=== PATIENT | female | born 1965 | race Caucasian/White ===

== ENCOUNTER 2020-01-29 15:09 | Emergency (ER) | payer OTHER ==
[2020-01-29] MEDS ORDERED: Cephalexin 500 MG Cap PO ONE ×2 (15:45→15:50)
--- NOTE | 2020-01-29 15:57 | EDM.PDOC ---
ED HPI GENERAL MEDICAL PROBLEM - General Chief Complaint: General Stated Complaint: INCISION WITH DRAINAGE Time Seen by Provider: 01/29/20 15:29 Source of Information: Reports: Patient, RN Notes Reviewed History Limitations: Reports: No Limitations - History of Present Illness INITIAL COMMENTS - FREE TEXT/NARRATIVE: Patient is a 55-year-old female who presents to the ED for evaluation of her draining abdomen wound. Patient had a four-vessel CABG done by Dr. Hooker at [facility] in [place] on January 11. The patient noted that yesterday 1 of the abdomen incision sites seem to have popped open, and she is noticing some drainage that is malodorous. There is some redness around the incision, and it is somewhat tender. She is in no obvious abdominal pain however. She does have a sulfa allergy. She was trying to clean this in the shower, but decided she better come get this looked at as she did not want it progressing further. Patient denies any other sick-like symptoms, fever/chills, cough/shortness of breath, nausea/vomiting/diarrhea. - Related Data Allergies Allergy/AdvReac Type Severity Reaction Status Date / Time Sulfa (Sulfonamide Allergy Severe Hives Verified 01/29/20 15:30 Antibiotics) iodine Allergy Hives Verified 01/29/20 15:30 Home Meds: Home Meds Aspirin [Halfprin] 81 mg PO DAILY 01/29/20 [History] DULoxetine [Cymbalta] 60 mg PO DAILY 01/29/20 [History] Metoprolol Succinate 12.5 mg PO BID 01/29/20 [History] Ozempic 1 injection INJECT FR 01/29/20 [History] atorvaSTATin [Lipitor] 80 mg PO DAILY 01/29/20 [History] cephALEXin [Cephalexin] 500 mg PO QID 7 Days #26 capsule 01/29/20 [Rx] Past Medical History Cardiovascular History: Reports: Bypass Other Cardiovascular History: jan 12 2020 4 vessel bypass Genitourinary History: Reports: UTI, Recurrent Musculoskeletal History: Reports: Arthritis, Fibromyalgia, Gout Endocrine/Metabolic History: Reports: Diabetes, Type II - Infectious Disease History Infectious Disease History: Reports: Chicken Pox - Past Surgical History Female Surgical History: Reports: Breast Biopsy, Hysterectomy Other Female Surgeries/Procedures: benign Social & Family History - Tobacco Use Tobacco Use Status *Q: Former Tobacco User Used Tobacco, but Quit: Yes Month/Year Tobacco Last Used: Jan 10 - Caffeine Use Caffeine Use: Reports: None - Recreational Drug Use Recreational Drug Use: Yes Recreational Drug Type: Reports: Marijuana/Hashish Recreational Drug Use Frequency: Daily ED ROS GENERAL - Review of Systems Review Of Systems: Comprehensive ROS is negative, except as noted in HPI. ED EXAM, GENERAL - Physical Exam Exam: See Below Exam Limited By: No Limitations General Appearance: Alert, WD/WN, No Apparent Distress Respiratory/Chest: No Respiratory Distress, Lungs Clear, Normal Breath Sounds, No Accessory Muscle Use, Chest Non-Tender Cardiovascular: Normal Peripheral Pulses, Regular Rate, Rhythm, No Murmur Peripheral Pulses: 2+: Radial (L) GI/Abdominal: Normal Bowel Sounds, Soft, No Distention, No Mass, Tender (minimal tenderness around the incision site in question on Left upper abdomen. The site is open, does appear to be draining a foul smelling purulent liquid. ) Extremities: Normal Inspection, Normal Capillary Refill Neurological: Alert, Oriented, Normal Cognition, No Motor/Sensory Deficits Psychiatric: Normal Affect, Normal Mood Skin Exam: Warm, Dry, Normal Color, No Rash, Wound/Incision (See abdomen assessment for further detail) Course - Vital Signs Last Recorded V/S: Last Vital Signs Temp 97.5 F 01/29/20 15:24 Pulse 86 01/29/20 15:24 Resp 19 01/29/20 15:24 BP 124/80 01/29/20 15:24 Pulse Ox 98 01/29/20 15:24 - Orders/Labs/Meds Meds: Medications Discontinued Medications Generic Name Dose Route Start Last Admin Trade Name Karthikeyanq PRN Reason Stop Dose Admin Cephalexin 500 mg 01/29/20 15:45 Keflex PO 01/29/20 15:46 ONETIME ONE - Re-Assessments/Exams Free Text/Narrative Re-Assessment/Exam: 01/29/20 15:54 Patient presents to the ED for a draining abdomen wound. I did call cardiothoracic surgery in [place], to make sure there were no special considerations regarding her postsurgical status. I got a hold of Dr. Metcalf, and he states normal skin moni antibiotics would be appropriate at this time. Should be placed on Keflex for management, 500 mg 4 times daily. Departure - Departure Time of Disposition: 15:54 Disposition: Home, Self-Care 01 Condition: Good Clinical Impression: Draining postoperative wound Qualifiers: Encounter type: initial encounter Qualified Code(s): T81.89XA - Other complications of procedures, not elsewhere classified, initial encounter - Discharge Information *PRESCRIPTION DRUG MONITORING PROGRAM REVIEWED*: No *COPY OF PRESCRIPTION DRUG MONITORING REPORT IN PATIENT SOLA: No Prescriptions: cephALEXin [Cephalexin] 500 mg PO QID 7 Days #26 capsule Instructions: How to Minimize Scarring After Surgery Referrals: Mariah Gomez, [employer] [Primary Care Provider] - Additional Instructions: You were evaluated in the ER today for your draining abdomen wound. Cardiothoracic surgery was consulted due to your recent CABG by Dr. Hooker. I was in touch with his coworker, Dr. Metcalf, and you will be started on cephalexin 1 tablet 4 times a day for the next 7 days. You were given your first dose in the ER, and a second to take tonight. You will need to go to the pharmacy in [facility] grocery store tomorrow to order picker the rest of the medication to take as prescribed. You may use Tylenol or ibuprofen every 6 hours as needed for further pain relief. Please keep the area clean with warm soapy water, you may bandage as appropriate with gauze and tape. You should follow-up with Dr. Hooker, sometime next week or the week after to make sure that everything is getting better as expected. If you do not notice improvement in the wound drainage by Thursday, I highly recommend that you get seen by another medical professional for a possible change in antibiotics. Normally antibiotics can take up to 48 hours to start providing full effect. Please return to the ER at any time if symptoms change or worsen. Sepsis Event Note (ED) - Evaluation Sepsis Screening Result: No Definite Risk - Focused Exam Vital Signs: Vital Signs Temp Pulse Resp BP Pulse Ox 01/29/20 15:24 97.5 F 86 19 124/80 98
== END 2020-01-29 16:15 | disposition home or self-care (01) ==
LOC: JD.ED 15:09
DX: L76.82 Other postprocedural complications of skin and subcutaneous tissue (principal); M10.9 Gout, unspecified; E11.9 Type 2 diabetes mellitus without complications; Z87.891 Personal history of nicotine dependence; Z88.2 Allergy status to sulfonamides; Z91.048 Other nonmedicinal substance allergy status; Z79.82 Long term (current) use of aspirin; Z79.899 Other long term (current) drug therapy
CPT/HCPCS: 99282; A9270; 99283

== ENCOUNTER 2020-11-29 06:08 | Day surgery (SDC) | payer OTHER ==
[~2020-11-29 06:08] MED LIST: Acetaminophen 325 MG Tab PO SCH; Lactated Ringers 1,000 ML IV SCH; Lidocaine 1% 4 ML ONE; Lidocaine 1%/Sod Bicarbonate in NS 8.4% 1 ML Syringe IDERM PRN; Midazolam 1 MG/ML 2 ML SDV ONE; Propofol 200 MG/20 ML SDV ONE; Sodium Chloride 0.9% 10 ML Syringe FLUSH PRN; ceFAZolin 1 GM Vial ONE; fentaNYL 100 MCG/2 ML SDV ONE
[2020-11-29] MEDS ORDERED: Lactated Ringers 1,000 ML ONE (06:12)
[2020-11-29] MEDS ORDERED: Pregabalin 25 MG Cap PO SCH (06:15)
[2020-11-29] MEDS ORDERED: oxyCODONE ER 10 MG TAB.ER PO SCH (06:15)
--- NOTE | 2020-11-29 06:23 | PCM.PREANE ---
Preanesthetic Assessment - Anesthesia/Transfusion/Family Hx Anesthesia History: Prior Anesthesia Without Reaction Family History of Anesthesia Reaction: No Transfusion History: No Prior Transfusion(s) Intubation History: Unknown - Review of Systems General: No Symptoms Pulmonary: No Symptoms Cardiovascular: No Symptoms Gastrointestinal: No Symptoms Neurological: No Symptoms Other: Reports: Diabetes - Physical Assessment NPO Status Date: 11/28/20 NPO Status Time: 21:30 ASA Class: 3 Mental Status: Alert & Oriented x3 Airway Class: Mallampati = 3 Dentition: Reports: Normal Dentition Thyro-Mental Finger Breadths: 3 Mouth Opening Finger Breadths: 3 ROM/Head Extension: Full Lungs: Clear to Auscultation, Normal Respiratory Effort Cardiovascular: Regular Rate, Regular Rhythm, Murmurs - Allergies Allergies/Adverse Reactions: Allergies Allergy/AdvReac Type Severity Reaction Status Date / Time Sulfa (Sulfonamide Allergy Intermediate Hives Verified 11/28/20 16:19 Antibiotics) iodine Allergy Hives Verified 11/28/20 16:19 simvastatin [From Zocor] Allergy Cannot Verified 11/28/20 16:19 Remember - Anesthesia Plan Beta Derrell: Metoprolol Med Last Dose Date: 11/29/20 Med Last Dose Time: 05:30 - Acknowledgements Anesthesia Type Planned: Spinal, Regional Block Pt an Appropriate Candidate for the Planned Anesthesia: Yes Alternatives and Risks of Anesthesia Discussed w Pt/Guardian: Yes Pt/Guardian Understands and Agrees with Anesthesia Plan: Yes PreAnesthesia Questionnaire HEENT History: Reports: Impaired Vision, Other (See Below) Other HEENT History: wears glasses Cardiovascular History: Reports: Bypass, Heart Failure, Heart Murmur, Hypertension Other Cardiovascular History: abnormal EKG, LVH Respiratory History: Reports: Sleep Apnea (CPAP) Gastrointestinal History: Reports: None Genitourinary History: Reports: UTI, Recurrent Musculoskeletal History: Reports: Arthritis, Fibromyalgia, Gout Neurological History: Reports: None Psychiatric History: Reports: None Endocrine/Metabolic History: Reports: Diabetes, Type II Hematologic History: Reports: None Immunologic History: Reports: None Oncologic (Cancer) History: Reports: None Dermatologic History: Reports: Urticaria - Infectious Disease History Infectious Disease History: Reports: Chicken Pox - Past Surgical History Head Surgeries/Procedures: Reports: None HEENT Surgical History: Reports: Adenoidectomy, Cataract Surgery, Tonsillectomy Cardiovascular Surgical History: Reports: Coronary Artery Bypass Respiratory Surgical History: Reports: None GI Surgical History: Reports: None Female Surgical History: Reports: Breast Biopsy, Hysterectomy Other Female Surgeries/Procedures: benign Endocrine Surgical History: Reports: None Neurological Surgical History: Reports: None Musculoskeletal Surgical History: Reports: Hip Replacement, Other (See Below) ((L) ankle) Oncologic Surgical History: Reports: None Dermatological Surgical History: Reports: None - SUBSTANCE USE Tobacco Use Status *Q: Former Tobacco User Recreational Drug Use History: No - HOME MEDS Home Medications: Home Meds atorvaSTATin [Lipitor] 80 mg PO DAILY 01/29/20 [History] Clobetasol [Clobetasol 0.05%] 1 dose TOP ASDIRECTED 11/28/20 [History] DULoxetine HCl [Cymbalta] 60 mg PO DAILY 11/28/20 [History] Losartan [Cozaar] 50 mg PO DAILY 11/28/20 [History] Metoprolol Tartrate 50 mg PO DAILY 11/28/20 [History] Risankizumab-Rzaa [Skyrizi] 1 dose IM Q90D 11/28/20 [History] Semaglutide [Ozempic] 0.75 mg SQ TU 11/28/20 [History] Apixaban [Eliquis] 2.5 mg PO BID #60 tablet 11/29/20 [Rx] Aspirin 81 mg PO DAILY #1 tab.chew 11/29/20 [Rx] oxyCODONE 5 - 10 mg PO Q4H PRN #40 tab 11/29/20 [Rx] - CURRENT (IN HOUSE) MEDS Current Meds: Current Medications Acetaminophen (Acetaminophen 325 Mg Tab) 975 mg PO ONETIME DIANA Stop: 11/29/20 16:00 Morphine Sulfate 8 mg/Epinephrine HCl 0.3 mg/Cefuroxime Sodium 750 mg/Ketorolac Tromethamine 30 mg/Sodium Chloride 7.9 ml 0 mg .XX ASDIRECTED PRN PRN Reason: Pain Stop: 11/29/20 16:00 Lactated Ringer's (Ringers, Lactated) 1,000 mls @ 125 mls/hr IV ASDIRECTED DIANA Stop: 11/29/20 23:00 Lidocaine/Sodium Bicarbonate (Lidocaine 1%/Sod Bicarbonate In Ns 8.4% 1 Ml Syringe) 0.25 ml IDERM ONETIME PRN PRN Reason: Prior to IV Start Stop: 11/29/20 18:00 Oxycodone HCl (Oxycodone Er 10 Mg Tab.Er) 10 mg PO ONETIME DIANA Stop: 11/29/20 16:00 Pregabalin (Pregabalin 25 Mg Cap) 50 mg PO ONETIME DIANA Stop: 11/29/20 16:00 Sodium Chloride (Sodium Chloride 0.9% 10 Ml Syringe) 10 ml FLUSH ASDIRECTED PRN PRN Reason: Keep Vein Open Stop: 11/29/20 18:00 Discontinued Medications Cefazolin Sodium (Cefazolin 1 Gm Vial) Confirm Administered Dose 2 gm .ROUTE .STK-MED ONE Stop: 11/29/20 06:04 Fentanyl (Fentanyl 100 Mcg/2 Ml Sdv) Confirm Administered Dose 100 mcg .ROUTE .STK-MED ONE Stop: 11/29/20 06:04 Lidocaine HCl (Xylocaine-Mpf 1%) Confirm Administered Dose 4 mls @ as directed .ROUTE .STK-MED ONE Stop: 11/29/20 06:03 Lactated Ringer's (Ringers, Lactated) Confirm Administered Dose 1,000 mls @ as directed .ROUTE .STK-MED ONE Stop: 11/29/20 06:13 Midazolam HCl (Midazolam 1 Mg/Ml 2 Ml Sdv) Confirm Administered Dose 2 mg .ROUTE .STK-MED ONE Stop: 11/29/20 06:04 Propofol (Propofol 200 Mg/20 Ml Sdv) Confirm Administered Dose 200 mg .ROUTE .STK-MED ONE Stop: 11/29/20 06:03
[2020-11-29] MEDS ORDERED: ePHEDrine 50 MG/ML SDV ONE (07:33)
[2020-11-29] MEDS ORDERED: Propofol 200 MG/20 ML SDV ONE ×2 (07:51→08:32)
[2020-11-29] MEDS ORDERED: diphenhydrAMINE 50 MG/ML SDV IVPUSH PRN (07:59)
[2020-11-29] MEDS ORDERED: fentaNYL 100 MCG/2 ML SDV IVPUSH PRN (07:59)
[2020-11-29] MEDS ORDERED: Ondansetron 4 MG/2 ML SDV IVPUSH PRN (07:59)
[2020-11-29] MEDS: Morphine 8 MG, EPINEPHrine 0.3 MG, Cefuroxime 750 MG, Ketorolac 30 MG, Sodium Chloride ... PRN ×10 (08:02→08:28)
[2020-11-29] MEDS: Vancomycin 1 GM SDV ONE ×2 (08:02→08:30)
[2020-11-29] MEDS: Bupivacaine 0.25% 10 ML SDV ONE ×2 (08:03→08:51)
[2020-11-29] MEDS: Triamcinolone Acetonide 40 MG/ML 1 ML SDV ONE ×2 (08:03→08:51)
[2020-11-29] MEDS ORDERED: EPINEPHrine 1 MG/ML SDV ONE (08:22)
[2020-11-29] MEDS ORDERED: Ropivacaine 0.5% 5 MG/ML 30 ML SDV ONE (08:22)
[2020-11-29] MEDS ORDERED: Ondansetron 4 MG/2 ML SDV ONE (08:28)
[2020-11-29] MEDS ORDERED: Ketorolac 15 MG/ML SDV ONE (08:30)
--- NOTE | 2020-11-29 09:19 | PCM.POSTAN ---
POST ANESTHESIA ASSESSMENT - MENTAL STATUS Mental Status: Alert, Oriented - VITAL SIGNS Vital Signs: Last Vital Signs Temp 36.8 C 11/29/20 09:06 Pulse 71 11/29/20 08:58 Resp 12 11/29/20 09:06 BP 115/66 11/29/20 09:06 Pulse Ox 94 L 11/29/20 09:06 - RESPIRATORY Respiratory Status: Respiratory Rate WNL, Airway Patent, O2 Saturation Stable - CARDIOVASCULAR CV Status: Pulse Rate WNL, Blood Pressure Stable - GASTROINTESTINAL GI Status: No Symptoms - PAIN Pain Score: 0 - POST OP HYDRATION Hydration Status: Adequate & Stable
--- NOTE | 2020-11-29 09:24 | PCM.PRNOTE ---
- Free Text/Narrative Note: Left selective femoral nerve block at the adductor canal for post-procedure pain control under US guidance requested by Dr. Jefferson. Time Out: 906 Start: 907 End: 915 Chart reviewed. Consent signed. Questions answered. Appropriate monitors applied. Time out performed. Left mid-shaft femur identified with ultrasound, scanning medially of femur, the femoral artery in the adductor canal visualized, and the femoral nerve located laterally to the artery. The skin was prepped lateral to the ultrasound probe with chlorahexadine times two. The 21ga 4 insulated block needle was inserted under direct ultrasound guidance into the adductor canal. 20mL of 0.5% ropivacaine with 1:200,000 epinephrine was injected circumferentially around the nerve with intermittent negative aspiration noted. Patient tolerated the procedure well. Sterile technique noted along with sterile gloves, mask, and sterile probe cover. See picture on progress note and vital signs on nurses notes. Block completed in PACU. Lia Guerra CRNA
[2020-11-29] MEDS ORDERED: oxyCODONE 5 MG Tab PO PRN (09:37)
--- NOTE | 2020-11-29 09:44 | PCM48HPAN ---
Post Anesthesia Note - EVALUATION WITHIN 48HRS OF ANESTHETIC Vital Signs in Normal Range: Yes Patient Participated in Evaluation: Yes Respiratory Function Stable: Yes Airway Patent: Yes Cardiovascular Function Stable: Yes Hydration Status Stable: Yes Pain Control Satisfactory: Yes Nausea and Vomiting Control Satisfactory: Yes Mental Status Recovered: Yes Vital Signs: Last Vital Signs Temp 36.9 C 11/29/20 09:30 Pulse 60 11/29/20 09:30 Resp 14 11/29/20 09:30 BP 123/67 11/29/20 09:30 Pulse Ox 99 11/29/20 09:40
--- NOTE | 2020-11-29 10:38 | CR ---
Left knee: AP and crosstable lateral views of the left knee were obtained. Comparison: Prior left knee CT study of 11/13/20. Left knee prosthesis is seen. Components are aligned. Underlying bony structure shows no other acute abnormality. Patellar prosthesis is seen. Soft tissue air is noted. Incidental surgical clips are seen within the medial soft tissues. Impression: 1. Satisfactory radiographic appearance of recently placed left knee prostheses. Diagnostic code #2
--- NOTE | 2020-12-12 17:20 | PCM.OPNOTE ---
- General Post-Op/Procedure Note Date of Surgery/Procedure: 11/29/20 Operative Procedure(s): left total knee arthroplasty with kait[employer] and right knee steroid injection Pre Op Diagnosis: bilateral knee osteoarthrosis Post-Op Diagnosis: Same Anesthesia Technique: Local, MAC, Spinal Primary Surgeon: Nazario Jefferson Anesthesia Provider: Lia Guerra Supervisor Gelatin Plant: valerie Supervisor Gelatin Plant: Annette Brown EBL in mLs: 150 Complications: None Condition: Good Free Text/Narrative:: 2/2 9mm 29x9
--- NOTE | 2020-12-12 18:20 | OR ---
DATE OF OPERATION: 11/29/2020 SURGEON: Nazario Jefferson MD OPERATION PERFORMED: Left total knee arthroplasty with [employer] and right knee steroid injection. PREOPERATIVE DIAGNOSIS: Bilateral knee osteoarthrosis. POSTOPERATIVE DIAGNOSIS: Bilateral knee osteoarthrosis. ANESTHESIA: Local MAC with spinal. ANESTHESIA PROVIDER: Lia Guerra CRNA. DIRECTOR TRUST: Paige Hussein PA-C; and Annette Brown LPN. ESTIMATED BLOOD LOSS: 150 mL. COMPLICATIONS: None. CONDITION: Stable. IMPLANT: 1. Moni size 2 press-fit CR femur. 2. Cisco size 2 press-fit tibial baseplate. 3. Moni size 2 9 mm CS polyethylene insert. 4. Moni size 29 x 9 mm cemented asymmetric patella. DESCRIPTION OF PROCEDURE: The patient was identified in the preoperative holding area. Proper site was marked and identified by the surgeon. The patient was taken back to the operating theater where after adequate anesthesia, the patient had a nonsterile tourniquet applied to the left lower extremity. Left lower extremity was then sterilely prepped and draped in the usual sterile fashion. OR time-out was performed. Patient received 2 g IV Ancef. Leg ndiaye was applied to the left lower extremity. Left lower extremity was exsanguinated. Tourniquet was insufflated to 250 mmHg. Anterior incision was then made. Medial parapatellar arthrotomy was created. Deep fibers of the MCL were raised and anterior fat pad was resected. Attention was turned to the patella. Patella measured 21, resected to a 13 for 29 x 9 mm patella. Drill holes were then drilled. Two 4.0 Schanz pins were then placed intra-incisionally in the femur for the [employer] array. Two more were placed in the tibia 3 fingerbreadths below the tibial tubercle. At this time, checkpoints were placed in the femur and the tibia. Hip center rotation was obtained. Medial and lateral malleoli were marked. Femoral and tibial checkpoints were marked. 40 points were then obtained using the blue probe on both the femur and the tibia for the Moni Tejinder robotic plan. The patient's knee was brought into full extension. Varus and valgus stresses were applied as well as a 90-degree flexion. Moni Tejinder robotic plan for 19 mm gaps was then undertaken. Straight saw blade was then brought in and the tibial cut, anterior femoral cut, anterior chamfer cut, and posterior femoral cut were completed. Saw blade was then switched. Distal femoral cut as well as posterior chamfer cuts were then completed. The bony fragments were removed, medial and lateral meniscus were resected, any posterior osteophytes were removed. Trial implants with a size 2 tibia and size 2 femur were then placed and a 9 mm trial spacer was placed. The patient had full knee flexion and extension and no varus-valgus instability. Patella tracking centrally. At this time, drill holes were drilled in the femur as well as the tibia was stamped and drilled in proper rotation. All trial implants were removed. The size 2 tibia was impacted in place. Size 2 femur was impacted in place. A size 9 mm CS polyethylene insert was impacted placed. The patient's knee was brought to full extension and 29 x 9 mm press-fit patella was pressed into place. Tourniquet was deflated. Bleeders were cauterized. 1 L pulse lavage irrigation with Ancef was irrigated through the knee along with 400 mL of Irrisept irrigation. Periarticular injection was completed. Topical tranexamic acid and vancomycin powder were applied. A #2 barbed suture was used for closure of the medial parapatellar arthrotomy, 2-0 Vicryl was used along with Stratafix for subcutaneous closure, and Prineo was used for skin closure. After the patient tolerated this procedure well, under sterile technique 2 mL of 40 mg Kenalog, 4 mL of 0.25% Marcaine were injected to the right knee. Patient tolerated all procedures well. SANIYA /[id number]
== END 2020-11-29 13:52 | disposition home or self-care (01) ==
LOC: JD.SDS 06:08
PROVIDERS: ATTEND Orthopaedic Surgery
DX: M17.0 Bilateral primary osteoarthritis of knee (principal); M25.762 Osteophyte, left knee; I10 Essential (primary) hypertension; E78.5 Hyperlipidemia, unspecified; G47.33 Obstructive sleep apnea (adult) (pediatric); E11.9 Type 2 diabetes mellitus without complications; M10.9 Gout, unspecified; I25.10 Atherosclerotic heart disease of native coronary artery without angina pectoris; Z87.891 Personal history of nicotine dependence; Z88.2 Allergy status to sulfonamides
CPT/HCPCS: 20610; 27447; 73560; 82947; 97116; 97161; A9270; C1713; C1776; J0171; J0690; J0697; J1885; J2250; J2270; J2405; J2704; J2795; J3010; J3301; J3370; J3490; J7120; 01402; 64450; 76942

== ENCOUNTER 2021-12-11 06:47 | Day surgery (SDC) | payer OTHER ==
[~2021-12-11 06:47] MED LIST changes: -Lidocaine 1% 4 ML ONE; +Morphine 8 MG, EPINEPHrine 0.3 MG, Cefuroxime 750 MG, Ketorolac 30 MG, Sodium Chloride ... PRN; +Pregabalin 25 MG Cap PO SCH; +Sodium Chloride 0.9% 10 ML Syringe FLUSH SCH; -ceFAZolin 1 GM Vial ONE; +ceFAZolin 2 GM Vial ONE; +oxyCODONE ER 10 MG TAB.ER PO SCH
[2021-12-11] MEDS ORDERED: Vancomycin 1 GM SDV ONE (06:48)
[2021-12-11] MEDS ORDERED: EPINEPHrine 1 MG/ML SDV ONE (06:50)
[2021-12-11] MEDS ORDERED: Ropivacaine 0.5% 5 MG/ML 30 ML SDV ONE (06:50)
[2021-12-11] MEDS ORDERED: Bupivacaine 0.25% 10 ML SDV ONE (07:05)
[2021-12-11] MEDS ORDERED: Triamcinolone Acetonide 40 MG/ML 1 ML SDV ONE ×2 (07:05→08:09)
[2021-12-11] MEDS ORDERED: diphenhydrAMINE 50 MG/ML SDV ONE (07:41)
[2021-12-11] MEDS ORDERED: Lidocaine 1% 4 ML ONE ×2 (08:02→08:03)
[2021-12-11] MEDS ORDERED: HYDROmorphone 0.5 MG/0.5 ML Syringe ONE (08:32)
[2021-12-11] MEDS ORDERED: Ketorolac 30 MG/ML SDV ONE (08:32)
[2021-12-11] MEDS ORDERED: Rocuronium 50 MG/5 ML Vial ONE (08:32)
[2021-12-11] MEDS ORDERED: Dexamethasone 4 MG/ML 5 ML MDV ONE (08:32)
[2021-12-11] MEDS ORDERED: Ondansetron 4 MG/2 ML SDV ONE (08:32)
[2021-12-11] MEDS ORDERED: fentaNYL 100 MCG/2 ML SDV IVPUSH PRN (08:56)
[2021-12-11] MEDS ORDERED: Ondansetron 4 MG/2 ML SDV IVPUSH PRN (08:56)
[2021-12-11] MEDS ORDERED: HYDROmorphone 0.5 MG/0.5 ML Syringe IVPUSH PRN (08:56)
[2021-12-11] MEDS ORDERED: Neostigmine Methylsulfate 10 MG/10 ML MDV ONE (08:58)
[2021-12-11] MEDS ORDERED: Sugammadex Sodium 200 MG/2 ML VIAL ONE (09:33)
[2021-12-11] MEDS ORDERED: Acetaminophen/oxyCODONE 325-5 MG Tab PO SCH (11:29)
[2021-12-11] MEDS ORDERED: Lactated Ringers 1,000 ML ONE (11:58)
== END 2021-12-11 13:50 | disposition home or self-care (01) ==
LOC: JD.SDS 06:47
PROVIDERS: ATTEND Orthopaedic Surgery
DX: M17.11 Unilateral primary osteoarthritis, right knee (principal); M70.62 Trochanteric bursitis, left hip; I25.10 Atherosclerotic heart disease of native coronary artery without angina pectoris; I10 Essential (primary) hypertension; M79.7 Fibromyalgia; M10.9 Gout, unspecified; E78.5 Hyperlipidemia, unspecified; G47.33 Obstructive sleep apnea (adult) (pediatric); E11.9 Type 2 diabetes mellitus without complications; F17.200 Nicotine dependence, unspecified, uncomplicated; N39.0 Urinary tract infection, site not specified; F41.9 Anxiety disorder, unspecified; Z88.2 Allergy status to sulfonamides; Z79.82 Long term (current) use of aspirin; Z79.899 Other long term (current) drug therapy; Z98.890 Other specified postprocedural states
CPT/HCPCS: 0055T; 20610; 27447; 73560; 97116; 97161; A9270; C1713; C1776; J0171; J0690; J0697; J1100; J1170; J1200; J1885; J2250; J2270; J2405; J2704; J2710; J2795; J3010; J3301; J3370; J3490; J7120; 01402; 64450; 76942